=== PATIENT | male | born 2005 | race Caucasian/White ===

== ENCOUNTER 2024-03-13 16:39 | Emergency (ER) | payer SELFPAY ==
[~2024-03-13] VITALS: Ht 160 cm; Wt 81.6 kg
[2024-03-13 16:42] VITALS: O2SAT 99
[2024-03-13 17:11] LABS: CLARITY URINE TURBID (CLEAR); COLOR URINE YELLOW (YELLOW); GLUCOSE URINE NEGATIVE (NEGATIVE); KETONES URINE NEGATIVE (NEGATIVE); LEUKOCYTE ESTERASE URINE 2+ (NEGATIVE); NITRITE URINE NEGATIVE (NEGATIVE); OCCULT BLOOD URINE 2+ (NEGATIVE); PH URINE 7.5 (4.5-8.0); PROTEIN URINE 2+ (NEGATIVE); SPECIFIC GRAVITY URINE 1.025 (1.005-1.030)
[2024-03-13 17:33] LABS: SQUAMOUS EPITHELIAL CELL URINE FEW /lpf (RARE/1+)
[2024-03-13 17:35] LABS: BACTERIA URINE 3+; TRIPLE PHOSPHATE CRYSTAL URINE 2+ /lpf; WBC URINE 25-50 /hpf (0-2)
[2024-03-13] MEDS ORDERED: NITR100C MT (18:09)
[2024-03-13 18:22] VITALS: BP 132/79; PULSE 71; RESP 18; TEMP 98.7
== END 2024-03-13 18:24 | disposition home or self-care (01) ==
LOC: ER 16:39
DX: N39.0 Urinary tract infection, site not specified (principal)
CPT/HCPCS: 81003; 81025; 87077; 87186; 99283